=== PATIENT | male | born 1965 | race Caucasian/White ===

== ENCOUNTER 2025-02-02 08:19 | Emergency (ER) | payer OTHER, SELFPAY ==
[2025-02-02] VITALS (8 sets, daily range): BP systolic 111–128; BP diastolic 79–99
--- NOTE | 2025-02-02 09:08 | EDRN ---
J/. Travis ALFARO in room w/ pt at this time.
--- NOTE | 2025-02-02 09:15 | ED.GENMED ---
History of Present Illness
General
Chief Complaint: Chest Pain
Source: patient
Exam Limitations: none
Time Seen by Provider: 02/02/25 08:42
Nursing documentation reviewed up to this point in time: agreed with
History of Present Illness
History of Present Illness:
59 y/o M with IBS, kidney stones
no cardiac RF (father had CT > 55)
here with intermittent chest pressure and more constant sharp chest pains
sypmtoms started 5 days ago as a L sided sharp pain that is mild 3/10
he doesn't htink this is made better or worse with anything
but then 2 days ago started having some pressure in the center of his chest which is intermittent but not exertional and not associated with any other symptoms like nauesa, diaphoresis, shortness of breath, diziness
the pressure doesn't feel like a burning
he rates it 1/10 now but was 4/10 at maximum earlier this morning
he decided to come in [facility] it didn't go away
never has been seen by cradiologist previously
+ recent long travel on a flight 2 mo ago
no calf pain/swelling
Past History
Past History
ED Past Medical History: Other (Renal calculi) and Other (IBS)
ED Past Surgical History: Orthopedic
Social History
Tobacco: Non-smoker
Alcohol: Occasional
Drug: None
Personal:
Living: with family
Employment: Employed
Family History
Family History: Other
Review of Systems
Review of Systems
Allergies reviewed?: Yes
All Other Systems: Not applicable
Phy Exam
Physical Exam
Physical Exam:
GENERAL: Alert , in no apparent distress
EYE: pupils equal and reactive
NECK: Supple
ENT: o/p clr, mmm.
CARDIAC: Regular rate and rhythm .
LUNGS: Clear breath sounds bilaterally, no acute respiratory distress, no wheezes/rales/rhonchi
chest wall: nontender, not reproducible
ABDOMEN: Soft, without focal tenderness, no r/g, no cvat, normal bowel sounds
NEUROLOGICAL: Alert and oriented, no focal neuro deficits
SKIN: Warm and dry, skin intact.
MUSCULOSKELETAL: No edema, well perfused. neg alireza's sign
PSYCH: Normal and appropriate interaction.
Scores
Heart Score for Chest Pain Patients
STEMI patient?: No
History: Slightly or Non-Suspicious
ECG: Nonspecific Repolarization
Age: >45 - <65 years
Risk Factors: 1 or 2 Risk Factors
Troponin: </= Normal Limit
Heart Score for Chest Pain Patients: 3
Heart Score Risk: 2.5% MACE over next 6 weeks
Course
Orders/Labs/Results
Orders:
Orders
02/02/25 08:24
EKG [Electrocardiogram (*1)] Urgent
Reason for Study: Chest Pain
EKG- Treatment ONCE
02/02/25 09:10
Cardiac Monitoring- Treatment ONCE
IV Insert/Care/Rem.- Treatment PRN
02/02/25 09:14
Aspirin Chewable [Low Strength Aspirin] 324 mg PO NOW STA
CR Chest - 2 Views Urgent
Comment:
Reason For Exam: chest pain
02/02/25 09:22
Complete Blood Count/With Diff Urgent
Comprehensive Metabolic Panel Urgent
D-Dimer Urgent
Lipase Urgent
Troponin I Urgent
02/02/25 10:23
EKG- Treatment ONCE
02/02/25 12:00
Electrocardiogram (*1) Urgent
Reason for Study: Chest Pain
02/02/25 12:07
Troponin I Urgent
Abnormal Lab Results
02/02/25
09:22
WBC 3.1 L 10^3/uL
(4.8-10.8)
Absolute Lymphs (auto) 0.9 L 10^3/uL
(1.2-3.4)
Immature Gran % 0.6 H %
(0-0.5)
Monocytes % 13.7 H %
(1.7-9.3)
Chloride 111 H mmol/L
(98-107)
BUN 24 H mg/dl
(9-20)
Glucose 103 H mg/dl
(70-99)
02/02/25 09:22
02/02/25 09:22
Vital Signs
Initial and Last Documented VS:
Initial Vital Signs
Temp Pulse Resp BP Pulse Ox
36.6 C 71 16 128/80 98
02/02/25 08:26 02/02/25 08:26 02/02/25 08:26 02/02/25 08:26 02/02/25 08:26
Last Documented Vital Signs
Temp Pulse Resp BP Pulse Ox
36.6 C 50 16 125/99 98
02/02/25 08:26 02/02/25 13:00 02/02/25 13:00 02/02/25 13:00 02/02/25 13:00
MDM/Problems Addressed
Differential Diagnosis Includes:
ACS, GERD, anxiety, chest wall pain, PE
MDM/Problems Addressed:
59 y/o M
no sig pmh
dad had CT > 55
here with chest pain, constant mild sharp pain in the L upper chest and then intemrittent pressure x 2 days
no associated sypmtoms
not exertional
well appearing
stable vitals
ekg normal
1st trop neg
d dimer neg
xray indep reviewed, neg
will repeat trop
plan on chest pain hot line
*Critical Care Note
Total Time (30-74mins, 75-104mins- exclusive of procedures): Not Applicable
ED Attending Note
-
Portions of this chart may have been created with voice recognition software.� Occasional wrong word or��sound alike� substitutions may have occurred due to the inherent limitations of voice recognition software.
Discharge Plan
Departure
Patient Disposition: Home (Routine Discharge)
Date of Disposition: 02/02/25
Time of Disposition: 12:53
Patient with high blood pressure during this ER visit?: No
Condition: Fair
Covid-19: Not Applicable
Discharge Problem:
Chest pain
Instructions: Chest Pain CBC Follow Up
Prescriptions:
No Action
sildenafil [Viagra] 25 mg Tablet
25 mg PO DAILY PRN (Reason: PRN)
Patient Comments:
unknown exact dose
Referrals:
Eric Alamo DO [Family Provider] - Follow up in 2-3 days
Activity Restrictions/Additional Instructions:
WE ARE NOT SURE THE CAUSE OF YOUR CHEST PAIN BUT WE HAVE RULED OUT ANY LIFE THREATENING EMERGENCIES
LEASE FOLLOW UP WITH A PRINCIPAL ACCOUNTS CLERK, YOU SHOULD BE HEARING FROM THE GROUP TO MAKE AN APPOINTMENT
RETURN FOR WORSENING SYMPTOMS: SEVERE PAIN, PAIN ASSOCIATED WITH SHORTNESS OF BREATH, SWEATINESS, PASSING OUT OR ANY OTHER CONCERNS
Interventions
Interventions:
*Risk Screen - Suicide Last Done: 02/02/25 08:26
*General Assessment Last Done: 02/02/25 09:33
*Neglect/Abuse Screening Last Done: 02/02/25 08:26
*ED- Fall Risk Assessment Last Done: 02/02/25 09:33
*ED COVID-19 Vaccine History Last Done: 02/02/25 09:33
*Nursing Disposition Last Done: 02/02/25 13:12
ED- Cardiac Assessment Last Done: 02/02/25 09:33
Discharge Date and Time
Discharge Date/Time: 02/02/25 13:13
Print Language: BOLIVIAN
[2025-02-02 09:30] LABS: % Basophils 0.3 % (0-2); % Eosinophils 4.1 % (0-6); % Immature Granulocytes 0.6 % (0-0.5); % Lymphocytes 29.9 % (20.5-51.1); % Monocytes 13.7 % (1.7-9.3); % Neutrophils 51.4 % (42.2-75.2); Absolute Eosinophils 0.1 10^3/uL (0-0.7); Absolute Lymphocytes 0.9 10^3/uL (1.2-3.4); Absolute Monocytes 0.4 10^3/uL (0.1-0.6); Absolute Neutrophils 1.6 10^3/uL (1.4-6.5); Hematocrit 48.3 % (39.0-52.0); Hemoglobin 16.6 g/dL (13.0-18.0); Mean Corp Hgb Conc. 34.4 g/dL (33.0-37.0); Mean Corpuscular Hgb 28.7 pg (27.0-31.0); Mean Corpuscular Volume 83.4 fL (80.0-94.0); Mean Platelet Volume 9.9 fL (7.4-10.4); Nucleated Red Blood Cells % 0 % (-); Platelet Count 215 10^3/uL (130-400); Red Blood Cell Count 5.79 10^6/uL (4.70-6.10); Red Cell Dist. Width 13.4 % (11.5-14.5); White Blood Cell Count 3.1 10^3/uL (4.8-10.8)
[2025-02-02 09:41] LABS: D-Dimer 0.41 ug/mlFEU (0.00-0.50)
[2025-02-02 09:44] LABS: ALT (SGPT) 24 U/L (0-50); AST (SGOT) 26 U/L (17-59); Alkaline Phosphatase 44 U/L (38-126); Blood Urea Nitrogen 24 mg/dl (9-20); Calcium 9.6 mg/dl (8.4-10.2); Carbon Dioxide 25 mmol/L (22-30); Chloride 111 mmol/L (98-107); Glucose 103 mg/dl (70-99); Lipase 91 U/L (23-300); Potassium 4.4 mmol/L (3.5-5.1); Sodium 142 mmol/L (135-145); Total Bilirubin 0.8 mg/dl (0.2-1.3); Total Protein 6.7 g/dl (6.3-8.2); eGFR > 60.00
[2025-02-02] MEDS: LOW STRENGTH ASPIRIN 324 MG PO (09:54)
[2025-02-02 09:55] LABS: Troponin I < 0.012 ng/ml
--- NOTE | 2025-02-02 12:05 | EDRN ---
Repeat troponin drawn and sent at this time. Pt denies any chest pain at this time.
[2025-02-02 12:48] LABS: Troponin I < 0.012 ng/ml
== END 2025-02-02 13:13 | disposition home or self-care (01) ==
LOC: EMR 08:19
PROVIDERS: Physician Assistant; EMERGENCY PHYSICIAN Student in an Organized Health Care Education/Training Program; FAMILY PHYSICIAN Family Medicine
DX: R07.89 Other chest pain (principal); K58.9 Irritable bowel syndrome, unspecified; Z87.442 Personal history of urinary calculi; Z82.49 Family history of ischemic heart disease and other diseases of the circulatory system
CPT/HCPCS: 99284; 71046; 80053; 83690; 84484; 85025; 85379; 93005

== ENCOUNTER → 2025-07-28 14:57 | Outpatient (REF) | payer OTHER, SELFPAY | LOC: RCS 14:57 | PROVIDERS: ATTENDING PHYSICIAN Internal Medicine Cardiovascular Disease; FAMILY PHYSICIAN Family Medicine | DX: R07.89 Other chest pain (principal) | CPT/HCPCS: 93306 ==

== ENCOUNTER → 2025-08-19 07:36 | Outpatient (REF) | payer OTHER, SELFPAY | LOC: HWRCS 07:36 | PROVIDERS: ATTENDING PHYSICIAN Internal Medicine Cardiovascular Disease; FAMILY PHYSICIAN Family Medicine | DX: R07.89 Other chest pain (principal) | CPT/HCPCS: 78452; 93017; A9500 ==